=== PATIENT | female | born 1980 | race Caucasian/White ===

== ENCOUNTER 2020-06-17 20:47 | Emergency (ER) | payer BC ==
[2020-06-17 21:00] VITALS: BP 116/72; PULSE 71; RESP 18; TEMP 97.4
--- NOTE | 2020-06-17 21:22 | ED ---
General Adult HPI - General Chief complaint: Allergic Reaction Stated complaint: bee sting/allergic reaction Time Seen by Provider: 06/17/20 21:02 Source: patient, RN notes reviewed Mode of arrival: ambulatory Limitations: no limitations - History of Present Illness Initial comments: Patient is a pleasant 40-year-old female presenting to the emergency department following concern for a bee sting. Patient states she recently had a sting a couple of weeks ago and was placed on steroids at that time. Patient only took steroids for a day. Patient states she had another sting today on the right side of her back. Patient is started to develop hives. Patient did take a dose of the steroid and symptoms have already begun to improve. Patient states there may have been some mild swelling of her chin or lower lip however that has already improved. No throat or tongue swelling. No difficulty in breathing. - Related Data Previous Rx's Medication Instructions Recorded Acetaminophen-Codeine 300-30mg 1 - 2 tab PO Q4H PRN #30 tablet 10/16/16 [Tylenol #3] Ibuprofen [Motrin] 600 mg PO Q6HR PRN #40 tab 10/16/16 predniSONE [Deltasone] 20 mg PO BID #10 tab 06/17/20 Allergies Allergy/AdvReac Type Severity Reaction Status Date / Time bee venom protein (honey bee) Allergy Rash/Hives Verified 06/17/20 21:00 Penicillins Allergy Unknown Verified 06/17/20 21:00 Childhood Sulfa (Sulfonamide Allergy Rash/Hives Verified 06/17/20 21:00 Antibiotics) Review of Systems ROS Statement: Those systems with pertinent positive or pertinent negative responses have been documented in the HPI. ROS Other: All systems not noted in ROS Statement are negative. Constitutional: Denies: fever Eyes: Denies: eye pain ENT: Denies: ear pain Respiratory: Denies: cough Cardiovascular: Denies: chest pain Endocrine: Denies: fatigue Gastrointestinal: Denies: abdominal pain Genitourinary: Denies: dysuria Musculoskeletal: Denies: back pain Skin: Reports: as per HPI, rash Neurological: Denies: headache Past Medical History Past Medical History: No Reported History Additional Past Medical History / Comment(s): Obstetrics history: She's had 3 previous vaginal deliveries. This is her fourth and she's had care with Dr. Morales. Blood type is A+, rubella immune, hepatitis B-, HIV negative, GBS negative. History of Any Multi-Drug Resistant Organisms: None Reported Past Surgical History: No Surgical Hx Reported Past Anesthesia/Blood Transfusion Reactions: No Reported Reaction Past Psychological History: No Psychological Hx Reported Past Alcohol Use History: None Reported Past Drug Use History: None Reported - Past Family History Father Family Medical History: No Reported History Mother Family Medical History: Cancer Brother(s) Family Medical History: Cancer General Exam Limitations: no limitations General appearance: alert, in no apparent distress Head exam: Present: normocephalic Eye exam: Present: normal appearance, PERRL, EOMI ENT exam: Present: normal oropharynx, other (No signs of angioedema) Neck exam: Present: normal inspection Respiratory exam: Present: normal lung sounds bilaterally Cardiovascular Exam: Present: regular rate, normal rhythm GI/Abdominal exam: Present: soft. Absent: tenderness Extremities exam: Present: normal inspection Neurological exam: Present: alert Psychiatric exam: Present: normal affect, normal mood Skin exam: Present: urticaria (Minimal urticarial rash, one hive on the back. Patient does have some mild erythema/urticaria appearance of her upper arms) Course Vital Signs 06/17/20 20:54 Temperature 97.4 F L Pulse Rate 71 Respiratory 18 Rate Blood Pressure 116/72 O2 Sat by Pulse 99 Oximetry Medical Decision Making - Medical Decision Making Patient states she is feeling much better and does not want any further treatment. Patient requests discharge. Patient refuses antihistamine. Patient is advised to take an antihistamine at home and to continue steroids. Patient will be provided prescription for steroids in case she does not have full 5 day course at home. Disposition Clinical Impression: Hymenoptera sting Disposition: HOME SELF-CARE Condition: Stable Instructions (If sedation given, give patient instructions): Allergies (ED), Insect Bite or Sting (ED) Additional Instructions: Please follow-up with primary care physician in the next day or 2 for recheck. Continue steroids and Benadryl for the next 5 days. Return for difficulty breathing, swelling of the throat, tongue, or lips, worsening symptoms or other concerns Prescriptions: predniSONE [Deltasone] 20 mg PO BID #10 tab Is patient prescribed a controlled substance at d/c from ED?: No Referrals: Danyelle Jones MD [STAFF PHYSICIAN] - 1-2 days Time of Disposition: 21:22
== END 2020-06-17 21:32 | disposition home or self-care (01) ==
LOC: EC 20:47
DX: T63.441A Toxic effect of venom of bees, accidental (unintentional), initial encounter (principal); Z88.8 Allergy status to other drugs, medicaments and biological substances; Z88.2 Allergy status to sulfonamides; Z91.030 Bee allergy status; Z88.0 Allergy status to penicillin
CPT/HCPCS: 99283

== ENCOUNTER → 2023-09-11 | Outpatient (CLI) | payer OTHER ==
--- NOTE | 2023-09-12 06:46 | CA ---
Transthoracic Echo Report Name: Andrea Mcmillan Age: 43 Gender: F : 1980 Exam Date: 09/11/2023 14:41 Exam Location: [facility] Ht (in): 66 Wt (lb): 155 Ordering Physician: Elpidio Maya DO Attending/Referring Phys: Field Producer Cynthia Delcid [facility] Procedure CPT: Indications: R00.2 palpitations Cardiac Hx: Technical Quality: Fair Contrast 1: Total Dose (mL): Contrast 2: Total Dose (mL): MEASUREMENTS (Male / Female) Normal Values 2D ECHO LV Diastolic Diameter PLAX 4.6 cm 4.2 - 5.9 / 3.9 - 5.3 cm LV Systolic Diameter PLAX 3.3 cm IVS Diastolic Thickness 0.7 cm 0.6 - 1.0 / 0.6 - 0.9 cm LVPW Diastolic Thickness 0.8 cm 0.6 - 1.0 / 0.6 - 0.9 cm LV Relative Wall Thickness 0.3 LVOT Diameter 2.0 cm Ascending Aorta Diameter 2.5 cm M-MODE Aortic Root Diameter MM 2.2 cm LA Systolic Diameter MM 3.1 cm LA Ao Ratio MM 1.4 AV Cusp Separation MM 1.7 cm DOPPLER AV Peak Velocity 157.0 cm/s AV Peak Gradient 9.9 mmHg AV Mean Velocity 108.8 cm/s AV Mean Gradient 5.4 mmHg AV Velocity Time Integral 35.6 cm LVOT Peak Velocity 121.7 cm/s LVOT Peak Gradient 5.9 mmHg LVOT Velocity Time Integral 27.4 cm LVOT Stroke Volume 84.7 cm??? LVOT Stroke Volume Index 47.2 ml/m??? LVOT Cardiac Index 2745.9 cm???/min???m??? AV Area Cont Eq vti 2.4 cm??? AV Area Cont Eq pk 2.4 cm??? Mitral E Point Velocity 93.4 cm/s Mitral A Point Velocity 37.8 cm/s Mitral E to A Ratio 2.5 MV Deceleration Time 165.3 ms LV E' Lateral Velocity 17.9 cm/s Mitral E to LV E' Lateral Ratio 5.2 LV E' Septal Velocity 11.4 cm/s Mitral E to LV E' Septal Ratio 8.2 TR Peak Velocity 242.4 cm/s TR Peak Gradient 23.5 mmHg Right Atrial Pressure 8.0 mmHg Pulmonary Artery Systolic Pressu 31.5 mmHg Right Ventricular Systolic Press 31.5 mmHg FINDINGS Left Ventricle Left ventricular wall thickness normal. Left ventricular cavity size normal. Low normal left ventricular systolic function with no obvious regional wall motion abnormalities. Left ventricular ejection fraction is estimated at 50- 55%. Right Ventricle Normal right ventricular size. Mild pulmonary hypertension. Right Atrium Normal right atrial size. Left Atrium Normal left atrial size. Mitral Valve Mitral valve thickened. Trace mitral regurgitation. Aortic Valve Trileaflet aortic valve. Trace aortic regurgitation. Tricuspid Valve Structurally normal tricuspid valve. Trace tricuspid regurgitation. Pulmonic Valve Structurally normal pulmonic valve. Trace pulmonic regurgitation. Pericardium Minimal pericardial effusion Aorta Normal size aortic root and proximal ascending aorta. CONCLUSIONS Left ventricular systolic function of the lower limits of normal Thickened posterior pericardium with trace basal LV effusion, without any hemodynamic significance Previewed by: Dr. Steve Preciado MD (Electronically Signed) Final Date: 12 September 2023 06:46
== END | disposition home or self-care (01) ==
LOC: RADECHMAIN 14:32
PROVIDERS: ATTEND Family Medicine
DX: I31.8 Other specified diseases of pericardium (principal); R00.2 Palpitations
CPT/HCPCS: 93306

== ENCOUNTER → 2023-10-28 | Outpatient (CLI) | payer OTHER ==
[2023-10-29 03:08] LABS: ALT 12 U/L (8-44); AST 15 U/L (13-35); Albumin 4.6 g/dL (3.8-4.9); Albumin/Globulin Ratio 1.77 Ratio (1.60-3.17); Alkaline Phosphatase 46 U/L (41-126); BUN/Creat Ratio 15.71 Ratio (12.00-20.00); Calcium 9.9 mg/dL (8.7-10.3); Carbon Dioxide 25.6 mmol/L (21.6-31.8); Chloride 106 mmol/L (96-109); Globulin 2.6 g/dL (1.6-3.3); Glucose 91 mg/dL (70-110); Potassium 4.4 mmol/L (3.5-5.5); Sodium 142 mmol/L (135-145); T4, Free (Free Thyroxine) 1.12 ng/dL (0.80-1.80); Total Bilirubin 0.7 mg/dL (0.3-1.2); Total Protein 7.2 g/dL (6.2-8.2)
[2023-10-29 03:58] LABS: Follicle Stimulating Hormone 2.5 mIU/mL; Luteinizing Hormone 2.6 mIU/mL
[2023-10-29 04:00] LABS: Thyroid Peroxidase Antibodies 11.2 U/mL (0.0-33.0)
== END | disposition home or self-care (01) ==
LOC: LABWHC1 15:19
PROVIDERS: ATTEND Internal Medicine Endocrinology, Diabetes & Metabolism
DX: N92.0 Excessive and frequent menstruation with regular cycle (principal); R53.83 Other fatigue; R79.89 Other specified abnormal findings of blood chemistry; R63.5 Abnormal weight gain
CPT/HCPCS: 36415; 80053; 82533; 82607; 82627; 83001; 83002; 83498; 84146; 84402; 84439; 84443; 86376

== ENCOUNTER → 2024-01-11 | Outpatient (CLI) | payer OTHER ==
--- NOTE | 2024-01-11 22:01 | US ---
EXAMINATION TYPE: US thyroid st tissue head/neck DATE OF EXAM: 01/11/2024 COMPARISON: NONE CLINICAL INDICATION: Female, 43 years old with history of E04.2 NONTOXIC MULTINODULAR GOITER; Recent enlargement of right thyroid - felt by patient and doctor GLAND SIZE: Right Lobe: 5.2 x 1.5 x 1.9 cm Overall Parenchyma: homogeneous Left Lobe: 4.8 x 1.5 x 1.9 cm Overall Parenchyma: homogeneous Isthmus Thickness: 0.3 cm NODULES RIGHT: # of nodules measured on right: 0 LEFT: # of nodules measured on left: 0 ISTHMUS: # of nodules measured in the isthmus: 0 Bilateral neck scanned, no evidence of lymphadenopathy. IMPRESSION: Borderline to mild thyromegaly but with otherwise homogeneous parenchyma. No discrete nodules.
== END | disposition home or self-care (01) ==
LOC: RADUSWWP 13:47
PROVIDERS: ATTEND Family Medicine
DX: E01.0 Iodine-deficiency related diffuse (endemic) goiter (principal)
CPT/HCPCS: 76536

== ENCOUNTER → 2024-09-29 | Outpatient (CLI) | payer OTHER ==
[2024-09-29 15:34] LABS: Basophils # (A) 0.03 X 10*3/uL (0.00-0.10); Basophils % (A) 0.6 %; Eosinophils # (A) 0.02 X 10*3/uL (0.04-0.35); Eosinophils % (A) 0.4 %; HCT 38.9 % (37.2-46.3); HGB 13.1 g/dL (12.0-15.0); Lymphocytes # (A) 1.62 X 10*3/uL (0.90-5.00); Lymphocytes % (A) 33.5 %; MCHC 33.7 g/dL (32.0-37.0); Mean Platelet Volume 11.3 FL (9.5-12.2); Monocytes # (A) 0.29 X 10*3/uL (0.20-1.00); NRBC Per 100 WBC 0 X 10*3/uL (0.00-0.01); Neutrophils # (A) 2.86 X 10*3/uL (1.80-7.70); Neutrophils % (A) 59.3 %; Platelet Count 247 X 10*3/uL (140-440); RBC 3.97 X 10*6/uL (4.10-5.20); RDW 11.6 % (11.5-14.5); WBC 4.83 X 10*3/uL (4.50-10.00)
[2024-09-29 16:01] LABS: Homocysteine 7.45 UMOL/L (4.00-14.00)
[2024-09-29 16:26] LABS: % Iron Saturation 38.08 (12.00-45.00); C Reactive Protein, High Sens 0.806 mg/L (0.000-3.000); Ferritin 57.3 ng/mL (10.0-291.0); Iron 115 UG/DL (50-170); T4, Free (Free Thyroxine) 1.12 ng/dL (0.80-1.80); Total Iron Binding Capacity 302 UG/DL (228-460)
[2024-09-29 16:48] LABS: ALT 13 U/L (8-44); AST 22 U/L (13-35); Albumin 4.5 g/dL (3.8-4.9); Alkaline Phosphatase 54 U/L (41-126); BUN/Creat Ratio 16.38 Ratio (12.00-20.00); Blood Urea Nitrogen 13.1 mg/dL (9.0-27.0); Calcium 9.3 mg/dL (8.7-10.3); Chloride 106 mmol/L (96-109); Globulin 2.5 g/dL (1.6-3.3); Glucose 82 mg/dL (70-110); Potassium 4.6 mmol/L (3.5-5.5); Sodium 139 mmol/L (135-145); Total Bilirubin 0.6 mg/dL (0.3-1.2)
[2024-09-29 18:01] LABS: Insulin Level 7.9 mIU/mL (3.0-25.0)
[2024-09-30 04:48] LABS: Mycoplasma IgM Antibody 0.31 INDEX (<=0.90)
== END | disposition home or self-care (01) ==
LOC: LABWHC1 08:03
DX: R94.6 Abnormal results of thyroid function studies (principal); E27.9 Disorder of adrenal gland, unspecified; D89.82 Autoimmune lymphoproliferative syndrome [ALPS]; B37.9 Candidiasis, unspecified; R53.83 Other fatigue; T56.894D Toxic effect of other metals, undetermined, subsequent encounter; K90.9 Intestinal malabsorption, unspecified; D50.9 Iron deficiency anemia, unspecified; B99.9 Unspecified infectious disease; E03.9 Hypothyroidism, unspecified; E78.5 Hyperlipidemia, unspecified; R73.9 Hyperglycemia, unspecified; E78.00 Pure hypercholesterolemia, unspecified; E34.9 Endocrine disorder, unspecified; E72.11 Homocystinuria; E88.9 Metabolic disorder, unspecified; E58 Dietary calcium deficiency; D51.8 Other vitamin B12 deficiency anemias; E55.9 Vitamin D deficiency, unspecified; E56.9 Vitamin deficiency, unspecified
CPT/HCPCS: 36415; 80053; 82306; 82525; 82607; 82626; 82728; 83036; 83090; 83525; 83540; 83550; 84140; 84270; 84425; 84439; 84443; 84481; 84482; 84590; 84630; 85025; 86038; 86141; 86738